=== PATIENT | male | born 1995 | race Caucasian/White ===

== ENCOUNTER → 2020-02-21 | Outpatient (CLI) | payer MEDICAID ==
[~2020-02-21] MED LIST: MOTRIN400 MG PO; NO DAILY MEDS; TRAMADOL50 MG PO
== END | disposition home or self-care (01) ==
LOC: COVID19 10:11
PROVIDERS: ATTEND Family Medicine
DX: R05 Cough (principal); R06.02 Shortness of breath; J02.9 Acute pharyngitis, unspecified; R09.81 Nasal congestion; Z20.828 Contact with and (suspected) exposure to other viral communicable diseases

== ENCOUNTER 2024-06-22 08:57 | Emergency (ER) | payer OTHER ==
[~2024-06-22] VITALS: Ht 177.8 cm; Wt 72.6 kg
[2024-06-22 09:08] VITALS: BP 139/90
[2024-06-22] MEDS ORDERED: SODIUM CHLORIDE 0.9% 1,000 ML IV ONE (09:20)
[2024-06-22] MEDS ORDERED: MORPHINE Sulfate 2 MG/ML SYR IV ONE (09:20)
[2024-06-22] MEDS ORDERED: Ondansetron Hydrochloride 4 MG/2 ML VIAL IV ONE (09:20)
[2024-06-22] MEDS ORDERED: Ketorolac Tromethamine 15 MG/ML VIAL IV ONE (09:20)
[2024-06-22 09:34] LABS: HEMATOCRIT 50.2 % (42.0-52.0); MEAN CELL VOLUME 83.7 fl (80.0-94.0); MEAN CORPUSCULAR HGB 28.3 pg (27.0-31.0); MEAN CORPUSCULAR HGB CONC 33.9 g/dl (33.0-37.0); MEAN PLATELET VOLUME 10.8 fl (9.6-12.3); PLATELET COUNT AUTOMATED 136 10*3/uL (130-400); RED CELL DISTRI WIDTH 11.7 % (0-14.5); WHITE BLOOD COUNT 4.9 10*3/uL (4.8-10.8)
[2024-06-22 09:51] LABS: MANUAL DIFF REFLEX YES
[2024-06-22 09:57] LABS: ATYPICAL LYMPHS 2 % (0-0); BASOPHILS 1 % (0-1); TOTAL CELLS COUNTED 100 #CELLS
[2024-06-22 09:58] LABS: BUN 11 mg/dl (9-23); BURR CELLS MODERATE; CHLORIDE 103 mmol/L (98-107); LIPASE 32 U/L (12-53); PLATELET SUFFICIENCY NORMAL (NORMAL); POTASSIUM 3.6 mmol/L (3.4-5.1)
[2024-06-22] MEDS ORDERED: DICYCLOMINE HYD20 MG PO (10:58)
[2024-06-22] MEDS ORDERED: Ondansetron4 MG PO (10:58)
== END 2024-06-22 11:55 | disposition home or self-care (01) ==
LOC: ED 08:57
PROVIDERS: Emergency Medicine
DX: R10.12 Left upper quadrant pain (principal); R10.32 Left lower quadrant pain; R11.2 Nausea with vomiting, unspecified; R19.7 Diarrhea, unspecified; Z98.890 Other specified postprocedural states